=== PATIENT | male | born 1935 | race Caucasian/White ===

== ENCOUNTER 2020-02-28 11:50 | Outpatient (REF) | payer MEDICARE, OTHER, SELFPAY ==
[2020-02-28 13:27] LABS: Estimated Average Glucose 114 mg/dL; Hemoglobin A1c % 5.6 %
[2020-02-28 13:42] LABS: Alanine Aminotransferase 13 U/L (0-40); Alkaline Phosphatase 46 U/L (39-117); Anion Gap 9 (12-20); Aspartate Amino Transferase 16 U/L (5-37); Bilirubin Total 0.2 mg/dL (0.0-1.0); Blood Urea Nitrogen 26 mg/dL (9-16); Calcium 8.5 mg/dL (8.4-10.2); Carbon Dioxide 28 mmol/L (22-29); Chloride 107 mmol/L (96-108); Estimated Glomerular Filt Rate 37; Glucose Random 150 mg/dL (60-115); Potassium 4.9 mmol/l (3.3-5.1); Sodium 139 mmol/L (135-145); Total Protein 7.6 g/dL (6.5-8.0)
[2020-02-28 14:02] LABS: Free T4 (Free Thyroxine) 1.25 ng/dL (0.71-1.85)
[2020-02-28 14:23] LABS: Prostate Specific Antigen < 0.05 ng/mL (<0.05-4.0)
== END 2020-02-28 11:51 | disposition home or self-care (01) ==
LOC: HO.MANLDS 11:50
PROVIDERS: PCP Internal Medicine; Visit Provider Internal Medicine
DX: I10 Essential (primary) hypertension (principal); E13.42 Other specified diabetes mellitus with diabetic polyneuropathy; E03.9 Hypothyroidism, unspecified; Z12.5 Encounter for screening for malignant neoplasm of prostate
CPT/HCPCS: 80053; 83036; 84153; 84439; 84443

== ENCOUNTER 2020-03-02 09:25 | Outpatient (REF) | payer MEDICARE, OTHER, SELFPAY ==
[2020-03-02 11:42] LABS: Cholesterol 190 mg/dL; HDL Cholesterol 37 mg/dL; LDL Cholesterol Calculated 131 mg/dl; Triglycerides 114 mg/dL
== END 2020-03-02 09:26 | disposition home or self-care (01) ==
LOC: HO.MANLDS 09:25
PROVIDERS: PCP Internal Medicine; Visit Provider Internal Medicine
DX: E13.41 Other specified diabetes mellitus with diabetic mononeuropathy (principal)
CPT/HCPCS: 80061

== ENCOUNTER 2020-06-17 11:30 | Outpatient (REF) | payer MEDICARE, OTHER, SELFPAY ==
--- NOTE | 2020-06-18 12:52 | MHC.AU.P13 ---
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 Left hearing aid is broken and will be sent to press loader for repair. Previous Hearing Test Results: 12/27/2018 [facility] Mild/moderate sloping to severe high frequency sensorineural hearing loss bilaterally with 64% speech understanding for both ears. Ear History: Previous Ear Surgery: Pressure Equalization Tubes in past [place]other[place] Tinnitus/Ringing/Noises in Ears: Both Ears History of occupational noise exposure?: Yes Medical History: Medical History: Diabetes, High Blood Pressure, Thyroid Disease Medical History: History of Atrial Fibrilation with cardioversion procedure. Had a monitor implanted January 2020. Medication List: Not available for review Hearing Instrument History- Right Ear: Sand Conditioner Machine: Phonak Model: Virto B 70-13 Serial Number: [id number] Battery Size: 13 Repair Warranty: 01/03/2021 Dispensed By: [facility] Date of Fittin12/19/2016 Hearing Instrument History- Left Ear: Sand Conditioner Machine: Phonak Model: Virto B 70-13 Serial Number: [id number] Battery Size: 13 Warranty: 01/03/2021 Dispensed By: [facility] Date of Fittin12/19/2016 Otoscopy: Right Ear: Unremarkable Left Ear: Unremarkable Tympanometry: Tympanometry performed due to: History of middle ear dysfunction Right Ear: Normal Middle Ear System (Type A) Left Ear: Normal Middle Ear System (Type A) Hearing Evaluation: Transducer(s) Used: Insert Earphones Bone Conduction Method: Conventional Audiometry Stimuli Used: Pure Tones Right Ear: Description of Hearing: Moderate sloping to severe sensorineural hearing loss Left Ear: Description of Hearing: Mild sloping to severe sensorineural hearing loss Speech Recognition Threshold (SRT): Method Used: Monitored Live Voice Stimuli Used: Spondee Words Right Ear: 50 dB HL Left Ear: 50 dB HL Word Discrimination: Method: Recorded Lists Word Lists Used: NU-6 Right Ear: 64% at 85 dB HL Left Ear: 64% at 80 dB HL Comparison: Compared to the most recent evaluation: Hearing is stable. Recommendations: Audiological re-evaluation in one year. Hearing aid maintenance performed today. Right hearing aid sound quality improved following cleaning. Sending left hearing aid for repair. Re-programmed Matt's old left hearing aid to today's test results for him to use until the repaired aid is received. Diagnosis: Primary Diagnosis: H90.3 Bilateral Sensorineural Hearing Loss Services Performed: Comprehensive Audiological Evaluation (CPT 74509) Tympanometry (CPT 93076) Signature: Provider: Carlos Burgess, CCC-A
== END 2020-06-17 11:31 | disposition home or self-care (01) ==
LOC: HO.SH 11:30
PROVIDERS: Visit Provider Internal Medicine
DX: H91.90 Unspecified hearing loss, unspecified ear (principal)
CPT/HCPCS: 92557; 92567

== ENCOUNTER 2020-06-26 13:09 | Outpatient (REF) | payer SELFPAY | END 2020-06-26 13:10 | disposition home or self-care (01) | LOC: HO.HAP 13:09 | PROVIDERS: Visit Provider Internal Medicine | DX: Z13.89 Encounter for screening for other disorder (principal) ==

== ENCOUNTER 2020-07-15 11:57 | Outpatient (REF) | payer MEDICARE, OTHER, SELFPAY ==
[2020-07-15 12:54] LABS: MANUAL DIFF FLAG NO
[2020-07-15 13:07] LABS: Basophils Absolute Auto 0.1 X10*3/uL (0.0-0.2); Basophils Percent Auto 0.6 % (0-2); Eosinophils Absolute Auto 0.1 X10*3/uL (0.0-0.4); Eosinophils Percent Auto 1.2 % (0-4); Hematocrit 30.2 % (42-52); Hemoglobin 9.7 g/dl (14.0-18.0); Imm Gran Abs Auto 0.03 X10*3/uL (0.00-0.03); Imm Gran Pct Auto 0.4 % (0.0-0.4); Lymphocytes Percent Auto 13.5 % (20-40); Mean Corpuscular HGB Conc 32.1 g/dl (31.0-36.0); Mean Corpuscular Hemoglobin 32.4 pg (27.0-33.0); Mean Platelet Volume 9.7 fL (9.4-12.4); Monocytes Absolute Auto 0.6 X10*3/uL (0.1-1.2); Monocytes Percent Auto 7.9 % (2-11); Neutrophils Absolute Auto 5.9 X10*3/uL (2.0-8.3); Neutrophils Percent Auto 76.4 % (45-73); Platelet Count 285 X10*3/uL (160-400); Red Blood Count 2.99 X10*6/uL (4.60-5.80); Red Cell Distribution Width 12.8 % (11.0-16.0); White Blood Count 7.7 X10*3/uL (4.8-10.8)
[2020-07-15 17:40] LABS: Alanine Aminotransferase 15 U/L (0-40); Albumin Level 4.2 g/dL (3.5-5.0); Alkaline Phosphatase 45 U/L (39-117); Anion Gap 13 (12-20); Aspartate Amino Transferase 19 U/L (5-37); Bilirubin Total 0.3 mg/dL (0.0-1.0); Blood Urea Nitrogen 40 mg/dL (9-16); Calcium 8.6 mg/dL (8.4-10.2); Carbon Dioxide 29 mmol/L (22-29); Chloride 103 mmol/L (96-108); Estimated Average Glucose 111 mg/dL; Estimated Glomerular Filt Rate 28; Glucose Random 182 mg/dL (60-115); Hemoglobin A1c % 5.5 %; Potassium 4.4 mmol/L (3.3-5.1); Sodium 141 mmol/L (135-145); Total Protein 7.7 g/dL (6.5-8.0)
[2020-07-15 17:54] LABS: Free T4 (Free Thyroxine) 1.21 ng/dL (0.71-1.85); Thyroid Stimulating Hormone 1.84 uIU/mL (0.32-4.0)
== END 2020-07-15 11:58 | disposition home or self-care (01) ==
LOC: HO.MANLDS 11:57
PROVIDERS: PCP Internal Medicine; Visit Provider Physician Assistant
DX: E11.40 Type 2 diabetes mellitus with diabetic neuropathy, unspecified (principal)
CPT/HCPCS: 36415; 80053; 83036; 84439; 84443; 85025

== ENCOUNTER 2021-03-02 11:44 | Outpatient (REF) | payer MEDICARE, OTHER, SELFPAY ==
[2021-03-02 14:03] LABS: Hematocrit 35.4 % (42.0-52.0); Hemoglobin 10.6 g/dl (14.0-18.0); Mean Corpuscular HGB Conc 29.9 g/dl (31.0-36.0); Mean Corpuscular Hemoglobin 29.2 pg (27.0-33.0); Mean Corpuscular Volume 97.5 fL (80.0-98.0); Mean Platelet Volume 9.1 fL (9.4-12.4); Platelet Count 588 X10*3/uL (160-400); Red Blood Count 3.63 X10*6/uL (4.60-5.80); White Blood Count 9.9 X10*3/uL (4.8-10.8)
[2021-03-02 14:17] LABS: Estimated Average Glucose 123 mg/dL; Hemoglobin A1c % 5.9 %
[2021-03-02 14:43] LABS: Alanine Aminotransferase 26 U/L (0-40); Albumin Level 3.8 g/dL (3.5-5.0); Alkaline Phosphatase 69 U/L (39-117); Anion Gap 17 (12-20); Aspartate Amino Transferase 23 U/L (5-37); Bilirubin Total 0.2 mg/dL (0.0-1.0); Blood Urea Nitrogen 25 mg/dL (9-16); Calcium 9.4 mg/dL (8.4-10.2); Carbon Dioxide 29 mmol/L (22-29); Chloride 98 mmol/L (96-108); Estimated Glomerular Filt Rate 34; Glucose Fasting 164 mg/dL (60-99); Potassium 4.8 mmol/L (3.3-5.1); Sodium 139 mmol/L (135-145); Total Protein 7.4 g/dL (6.5-8.0)
[2021-03-02 14:56] LABS: Vitamin D 25-OH Total 41.5 ng/mL (>30)
== END 2021-03-02 11:45 | disposition home or self-care (01) ==
LOC: HO.MANLDS 11:44
PROVIDERS: PCP Internal Medicine; Visit Provider Internal Medicine
DX: I48.91 Unspecified atrial fibrillation (principal); E13.42 Other specified diabetes mellitus with diabetic polyneuropathy
CPT/HCPCS: 36415; 80053; 82306; 83036; 85027

== ENCOUNTER 2021-03-09 12:32 | Outpatient (REF) | payer OTHER, SELFPAY | END 2021-03-09 12:33 | disposition home or self-care (01) | LOC: HO.HAP 12:32 | PROVIDERS: Visit Provider Internal Medicine | DX: Z46.1 Encounter for fitting and adjustment of hearing aid (principal); H90.3 Sensorineural hearing loss, bilateral | CPT/HCPCS: V5260 ==

== ENCOUNTER 2021-04-08 13:00 | Outpatient (REF) | payer SELFPAY | END 2021-04-08 13:01 | disposition home or self-care (01) | LOC: HO.HAP 13:00 | PROVIDERS: Visit Provider Internal Medicine | DX: Z13.89 Encounter for screening for other disorder (principal) ==

== ENCOUNTER 2021-04-23 13:06 | Outpatient (REF) | payer SELFPAY | END 2021-04-23 13:07 | disposition home or self-care (01) | LOC: HO.HAP 13:06 | PROVIDERS: Visit Provider Internal Medicine | DX: Z13.89 Encounter for screening for other disorder (principal) ==

== ENCOUNTER 2021-07-15 13:14 | Outpatient (REF) | payer SELFPAY ==
--- NOTE | 2021-07-15 14:20 | MHC.AU.HFU ---
Hearing Instrument Follow-Up- Binaural Date of Visit: 07/15/21 Right Ear: Member Of [employer]: Phonak Model: Virto B 70-13 Serial Number: [id number] Repair Warranty: 03/19/2024 Loss and Damage Warranty: 03/19/2024 Battery Size: 13 Color: Lingle Type of Wax Guard: CeruStop Dispensed By: [facility] Date of Fittin03/09/2021 Left Ear: Member Of [place]: Phonak Model: Virto B 70-13 Serial Number: [id number] Repair Warranty: 03/19/2024 Loss and Damage Warranty: 03/19/2024 Battery Size: 13 Color: Lingle Type of Wax Guard: CeruStop Dispensed By: [facility] Date of Fittin03/09/2021 Follow-Up Summary: Patient scheduled for audio R/V, but has completely occluding cerumen in both ears. Advise cerumen removal by medical physician due to history of Diabetes and on blood thinners. Left hearing aid not working. 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 Following cleaning, aid still not working. Patient reports he pushed the same brush that was in his [employer] case which may have made matters worse. Aid being sent for repair under warranty. Recommendations: Call patient when repair in. Daughter will call when she knows the appointment date for cerumen removal. Would like to try to coordinate audio R/V and fitting repaired aid at the same appointment. If the aid comes in first, daughter will schedule an appointment to bring the right aid in to be programmed with the repaired left aid so patient does not have to wait to get aid back. Diagnosis Code(s): Primary Diagnosis: H90.3 Bilateral Sensorineural Hearing Loss Secondary Diagnosis: H61.23 Impacted Cerumen, Bilateral Services Performed: Package of Wax Guards: 2 Provider: Chalo Burgess, CCC-A
== END 2021-07-15 13:15 | disposition home or self-care (01) ==
LOC: HO.SH 13:14
PROVIDERS: Visit Provider Internal Medicine
DX: Z13.89 Encounter for screening for other disorder (principal)
CPT/HCPCS: V5267

== ENCOUNTER 2021-08-03 12:46 | Outpatient (REF) | payer MEDICARE, OTHER, SELFPAY ==
--- NOTE | 2021-08-09 10:54 | MHC.AU.AHA ---
Adult Audiological Evaluation Date of Visit: 08/03/21 Product Expert Used: Not Applicable Reason for Appointment: Audiologic re-evaluation to monitor hearing levels and speech discrimination ability as Matt has high risk factors which may decrease hearing. Matt has a long-standing history of hearing loss and using binaural hearing aids. He was scheduled for an evaluation on 07/15/2021; however, both ears had completely occluding cerumen and the left aid was not working. Cerumen removal by a physician was performed,the left hearing has been repaired, and he returns for the evaluation and fitting of the left aid. Previous Hearing Test Results: 06/17/2020 [facility] Mild/moderate, dropping to severe, sensorineural hearing loss with the right ear being poorer in the low frequencies. Speech understanding was 64% for both ears at a presentation level of 85 dB HL in the right ear and 80 dB HL in the left ear. Ear History: History of Ear Wax Buildup: Bilateral cerumen removed by physician prior to today's test. Previous Ear Surgery: Pressure Equalization Tubes in past History of occupational noise exposure?: Yes Medical History: Medical History: Diabetes, Heart Problems, High Blood Pressure, Thyroid Disease, History of Atrial Fibrilation with cardioversion procedure. Had a monitor implanted January 2020. Since last hearing test, Matt was diagnosed with COVID 19 and required hospitalization. 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 Model: [employer] ([employer]o B 70-13 Serial Number: [id number] Battery Size: 13 Repair Warranty: 03/19/2024 Loss and Damage Warranty: 03/19/2024 Dispensed By: [facility] Date of Fittin03/09/2021 Hearing Instrument History- Left Ear: Dealership Manager: Phonak Model: LFS ([employer]o B 70-13 Serial Number: [id number] Battery Size: 13 Warranty: 03/19/2024 Loss and Damage Warranty: 03/19/2024 Dispensed By: [facility] Date of Fittin03/09/2021 Otoscopy: Right Ear: Unremarkable Left Ear: Unremarkable Tympanometry: Tympanometry performed due to: History of middle ear dysfunction Right Ear: Negative Middle Ear Pressure (Type C) Left Ear: Normal Middle Ear System (Type A) Hearing Evaluation: Transducer(s) Used: Insert Earphones Bone Conduction Method: Conventional Audiometry Stimuli Used: Pure Tones Right Ear: Description of Hearing: Moderate sloping to profound sensorineural hearing loss. Left Ear: Description of Hearing: Mild sloping to profound sensorineural hearing loss. Speech Recognition Threshold (SRT): Method Used: Monitored Live Voice Stimuli Used: Spondee Words Right Ear: 45 dB HL Left Ear: 45 dB HL Word Discrimination: Method: Recorded Lists Word Lists Used: NU-6 Right Ear: 64% at 85 dB HL Left Ear: 56% at 80 dB HL Most Comfortable Level (MCL): Right Ear: 85 dB HL Left Ear: 80 dB HL Comparison: Compared to the most recent evaluation: Hearing is stable. Recommendations: Audiological re-evaluation in one year. Hearing aid maintenance performed today. Hearing aid(s) reprogrammed with updated test results. Diagnosis: Primary Diagnosis: H90.3 Bilateral Sensorineural Hearing Loss Secondary Diagnosis: Services Performed: Comprehensive Audiological Evaluation (CPT 77274) Tympanometry (CPT 37088) Signature: Provider: Carlos Burgess, [facility]
== END 2021-08-03 12:47 | disposition home or self-care (01) ==
LOC: HO.SH 12:46
PROVIDERS: Visit Provider Internal Medicine
DX: H90.3 Sensorineural hearing loss, bilateral (principal)
CPT/HCPCS: 92557; 92567